=== PATIENT | male | born 1960 | race Two or more races ===

== ENCOUNTER → 2016-06-21 | Outpatient (CLI) | payer BC ==
--- NOTE | 2016-06-22 08:27 | Diagnostic Imaging Report ---
Indication: Dyspnea Comparison: None 2 views of the chest obtained. No definite infiltrate or pulmonary vascular congestion identified. The heart is enlarged. The aorta is mildly enlarged consistent with atherosclerotic vascular disease. The bones are osteopenic. There is loss of height of several of the thoracic vertebra consistent with compression fracture deformities. This is not adequately assessed on the current study and the acuity of these fracture deformities is unknown. Impression: No acute disease
== END | disposition home or self-care (01) ==
LOC: RAD 13:41
DX: R05 Cough (principal); R06.00 Dyspnea, unspecified
CPT/HCPCS: 71020